=== PATIENT | male | born 1940 | race Caucasian/White ===

== ENCOUNTER 2019-02-14 16:20 | Inpatient (IN) | payer MEDICARE, OTHER ==
[~2019-02-14] VITALS: Ht 182.9 cm; Wt 66.5 kg
--- NOTE | 2019-02-14 16:48 | NUR ---
PT BROUGHT BACK FROM TRIAGE WITH CHIEF COMPLAINT OF JAUNDICE FOR 5 DAYS, DARK URINE, JUNG STOOL. DENIES CP, SOB, N/V.
[2019-02-14] MEDS ORDERED: PRAV10TA2 PO (16:56)
[2019-02-14] MEDS ORDERED: THEO400T2 PO (16:56)
[2019-02-14] MEDS ORDERED: ALBU1.25 NEB (16:56)
[2019-02-14] MEDS ORDERED: MONT4GRA PO (16:56)
[2019-02-14] MEDS ORDERED: TIOT18CA INH (16:56)
[2019-02-14] MEDS ORDERED: AMLO10TA8 PO (16:56)
[2019-02-14 17:35] LABS: MEAN CORPUSCULAR HEMOGLOBIN 33.5 pg (27.5-34.5); MEAN CORPUSCULAR HGB CONC 35.2 g/dL (33.2-36.2); MEAN CORPUSCULAR VOLUME 95.2 fL (81-97); MEAN PLATELET VOLUME 7.3 fL (7.4-10.4); PLATELET COUNT 353 x10^3/uL (130-400); RED BLOOD COUNT 4.11 x10^6/uL (4.38-5.82); RED CELL DISTRIBUTION WIDTH 14.6 % (9.4-14.8)
[2019-02-14 17:43] LABS: INTERNATIONAL NORMALIZED RATIO 0.96 (0.93-1.1); PROTHROMBIN TIME 10.1 Seconds (9.6-11.5)
[2019-02-14 17:44] LABS: MD YES
[2019-02-14 17:46] LABS: ALANINE AMINOTRANSFERASE 194 U/L (12-78); ALBUMIN 2.8 g/dL (3.4-5.0); ANION GAP 7 mmol/L (5-15); CALCIUM 9.3 mg/dL (8.5-10.1); CHLORIDE 104 mmol/L (98-107)
[2019-02-14 17:56] LABS: CREATININE 0.98 mg/dL (0.7-1.3)
[2019-02-14 17:57] LABS: ALKALINE PHOSPHATASE 988 U/L (45-117)
[2019-02-14 18:19] LABS: TOTAL PROTEIN 5.7 g/dL (6.4-8.2)
[2019-02-14 18:25] LABS: BILIRUBIN,TOTAL 23.5 mg/dL (0.2-1.0)
[2019-02-14] MEDS ORDERED: SODIUM CHLORIDE FLUSH 10ML SYR IVF ONE (18:30)
--- NOTE | 2019-02-14 18:30 | NUR ---
MARIA GUADALUPE QUEZADA AT BEDSIDE TO [facility] POC
[2019-02-14 18:33] LABS: BAND#(MANUAL) 0.07 x10^3/uL; BANDS%(MANUAL) 1 % (0-7); BASOS#(MANUAL) 0.07 x10^3/uL (0-0.1); BASOS% (MANUAL) 1 % (0-1); EOS#(MANUAL) 0.15 x10^3/uL (0.0-0.4); EOS% (MANUAL) 2 % (1-7); LYMPH#(MANUAL) 1.11 x10^3/uL (1-3.4); LYMPHS% (MANUAL) 15 % (22-44); MONOS#(MANUAL) 0.59 x10^3/uL (0.3-2.7); MONOS% (MANUAL) 8 % (2-9); SEGS% (MANUAL) 73 % (42-75)
[2019-02-14 18:34] LABS: <PLATELET ESTIMATE> ADEQUATE; <PLT MORPHOLOGY> NORMAL PLT MORPH; <RBC MORPHOLOGY> NORMAL
--- NOTE | 2019-02-14 18:52 | NUR ---
RPT RECEIVED FROM DEBBIE SNIDER. ASSUMED CARE OF PT. NO NEEDS AT THIS TIME.
[2019-02-14] MEDS ORDERED: OMNIPAQUE 350 MG/ML, 100ML BOTTLE ONE (19:26)
[2019-02-14] MEDS ORDERED: DOCUSATE 100 MG CAPSULE PO PRN (21:30)
[2019-02-14] MEDS ORDERED: ALBUTEROL SULFATE 2.5 MG/3 ML NEB PRN (21:30)
[2019-02-14] MEDS ORDERED: morphine SULFATE 10 MG/ML, 1ML IVPush PRN (21:30)
[2019-02-14] MEDS ORDERED: D5%-0.9% NACL 500 ML IV SCH (21:30)
[2019-02-14] MEDS ORDERED: ONDANSETRON ODT 4 MG PO PRN (21:30)
[2019-02-14] MEDS ORDERED: OXYcodone IR 5MG TABLET PO PRN (21:30)
[2019-02-14] MEDS ORDERED: POLYETHYLENE GLYCOL 17 GM PACKET PO PRN (21:30)
[2019-02-14] MEDS ORDERED: BISACODYL 10 MG SUPP PR PRN (21:30)
[2019-02-14] MEDS ORDERED: PROMETHAZINE 25 MG/ML, 1ML IM PRN (21:30)
[2019-02-14] MEDS ORDERED: ONDANSETRON 2MG/ML, 2ML IVPush PRN (21:30)
[2019-02-14] MEDS: NICOTINE 14MG/24 HR PATCH.TD24 TD SCH (21:30)
[2019-02-14] MEDS: IPRATROPIUM 0.5 MG/2.5 ML INHA NPPB SCH (22:00)
[2019-02-14 22:43] VITALS: BP 129/70
[2019-02-14 22:46] LABS: FREE T4 (FREE THYROXINE) 1.34 ng/dL (0.76-1.46)
[2019-02-15] MEDS: D5%-0.9% NACL 1,000 ML IV SCH ×2 (00:20→08:18)
[2019-02-15 02:40] VITALS: BP 110/66
[2019-02-15] MEDS: IPRATROPIUM 0.5 MG/2.5 ML INHA NPPB SCH (04:00)
[2019-02-15 06:13] LABS: MEAN CORPUSCULAR HEMOGLOBIN 33.7 pg (27.5-34.5); MEAN CORPUSCULAR HGB CONC 35.2 g/dL (33.2-36.2); MEAN CORPUSCULAR VOLUME 95.8 fL (81-97); MEAN PLATELET VOLUME 7.2 fL (7.4-10.4); PLATELET COUNT 317 x10^3/uL (130-400); RED BLOOD COUNT 3.68 x10^6/uL (4.38-5.82); RED CELL DISTRIBUTION WIDTH 14.7 % (9.4-14.8)
[2019-02-15 06:24] LABS: ALBUMIN 2.3 g/dL (3.4-5.0); CHLORIDE 109 mmol/L (98-107)
[2019-02-15 06:29] LABS: ALANINE AMINOTRANSFERASE 189 U/L (12-78); ALKALINE PHOSPHATASE 900 U/L (45-117); ANION GAP 7 mmol/L (5-15); CHOL/HDL RATIO 37.6; CHOLESTEROL, TOTAL 188 mg/dL (140-239); HDL CHOL % 3 % (26-37); HDL CHOLESTEROL (DIRECT) 5 mg/dL (40-60)
[2019-02-15 06:31] LABS: CREATININE 0.95 mg/dL (0.7-1.3)
[2019-02-15 06:32] LABS: LDL CHOLESTEROL,CALCULATED 149 mg/dL (54-169); LDL/HDL RATIO 29.8 (0.5-3.0); TOTAL PROTEIN 4.7 g/dL (6.4-8.2); TRIGLYCERIDES 171 mg/dL (50-200); VLDL CHOLESTEROL 34 mg/dL (0-25)
[2019-02-15 06:33] LABS: BILIRUBIN,TOTAL 24.5 mg/dL (0.2-1.0)
[2019-02-15 07:08] VITALS: BP 102/63
[2019-02-15] MEDS: ALBUTEROL/IPRATROPIUM 2.5MG/0.5MG, 3 ML NPPB SCH ×3 (08:10→21:35)
[2019-02-15] MEDS: BUDESONIDE 0.5 MG/2 ML INHA NPPB SCH ×2 (08:10→21:35)
[2019-02-15 08:16] LABS: MD YES
[2019-02-15 08:19] LABS: <PLATELET ESTIMATE> ADEQUATE; <PLT MORPHOLOGY> NORMAL PLT MORPH; <RBC MORPHOLOGY> NORMAL; EOS% (MANUAL) 7 % (1-7); LYMPH#(MANUAL) 1.51 x10^3/uL (1-3.4); LYMPHS% (MANUAL) 21 % (22-44); MONOS#(MANUAL) 0.79 x10^3/uL (0.3-2.7); MONOS% (MANUAL) 11 % (2-9); REACTIVE LYMPHS # (MANUAL) 0.14 x10^3/uL (0-0); REACTIVE LYMPHS % (MANUAL) 2 % (0-0); SEG#(MANUAL) 4.25 x10^3/uL (1.8-6.8); SEGS% (MANUAL) 59 % (42-75)
[2019-02-15] MEDS ORDERED: TEMPLATE NON-FORMULARY MED. (Tiotropium Bromide** (Spiriva**) 18 MCG) INH SCH (09:00)
[2019-02-15] MEDS ORDERED: AMLODIPINE 10 MG TAB PO SCH (09:00)
[2019-02-15] MEDS ORDERED: THEOPHYLLINE 100 MG CAP.ER.24H PO SCH (09:00)
[2019-02-15] MEDS: MONTELUKAST 4 MG TAB.CHEW PO SCH (09:37)
[2019-02-15 13:33] VITALS: BP 146/76
[2019-02-15] MEDS ORDERED: FENTANYL PF 100 MCG/2ML ONE (14:28)
[2019-02-15] MEDS ORDERED: LABETALOL 5MG/ML, 20ML IV PRN (15:00)
[2019-02-15] MEDS ORDERED: ACETAMINOPHEN 325 MG TABLET PO PRN (15:00)
[2019-02-15] MEDS ORDERED: FENTANYL PF 100 MCG/2ML IV PRN (15:00)
[2019-02-15] MEDS ORDERED: OXYcodone 5 MG/5 ML ORAL.SOL UDC PO PRN (15:00)
[2019-02-15] MEDS ORDERED: HYDROmorphone 2 MG/ML, 1ML IVPush PRN (15:00)
[2019-02-15] MEDS ORDERED: ALBUTEROL SULFATE 2.5 MG/3 ML NPPB PRN (15:00)
[2019-02-15] MEDS ORDERED: hydrALAzine 20 MG/ML, 1ML IV PRN (15:00)
[2019-02-15] MEDS ORDERED: INDOMETHACIN 50 MG SUPP.RECT ONE (15:33)
[2019-02-15] MEDS ORDERED: SUCCINYLCHOLINE 20 MG/ML, 10ML ONE (15:36)
[2019-02-15] MEDS ORDERED: ONDANSETRON 2MG/ML, 2ML ONE (15:36)
[2019-02-15] MEDS ORDERED: ROCURONIUM 10MG/ML,5ML ONE (15:36)
[2019-02-15] MEDS ORDERED: DEXAMETHASONE 4 MG/ML, 1ML ONE (15:36)
[2019-02-15] MEDS ORDERED: CEFAZOLIN 1,000 MG ONE (15:36)
[2019-02-15] MEDS ORDERED: SUGAMMADEX 200 MG/2 ML IVPush ONE (15:36)
[2019-02-15] MEDS ORDERED: GLYCOPYRROLATE 0.2MG/1ML, 5ML ONE (15:36)
[2019-02-15] MEDS ORDERED: NEOSTIGMINE 1 MG/ML, 10ML ONE (15:36)
[2019-02-15] MEDS ORDERED: ALBUTEROL HFA 90 MCG/SPRAY ONE (15:36)
[2019-02-15] MEDS ORDERED: PROPOFOL 10 MG/ML, 20ML ONE (15:36)
[2019-02-15] MEDS ORDERED: INDOMETHACIN 50 MG SUPP.RECT PR ONE (16:00)
[2019-02-15] MEDS ORDERED: hydrALAzine 20 MG/ML, 1ML ONE (16:30)
[2019-02-15] MEDS: hydrALAzine 20 MG/ML, 1ML IVPush PRN ×2 (16:33→18:35)
[2019-02-15] MEDS ORDERED: LACTATED RINGERS 1,000 ML IV SCH (17:30)
[2019-02-15 18:36] VITALS: BP 180/91
[2019-02-15] MEDS ORDERED: LACTATED RINGERS 1,600 ML IV SCH (20:00)
[2019-02-15] MEDS ORDERED: PRAVASTATIN 20 MG TABLET PO SCH (21:00)
[2019-02-15] MEDS: NICOTINE 14MG/24 HR PATCH.TD24 TD SCH (21:28)
[2019-02-16] MEDS: D5%-0.9% NACL 1,000 ML IV SCH ×2 (01:01→09:08)
[2019-02-16 01:09] VITALS: BP 128/64
[2019-02-16] MEDS: ALBUTEROL/IPRATROPIUM 2.5MG/0.5MG, 3 ML NPPB SCH ×3 (03:00→14:29)
[2019-02-16 05:18] LABS: ALBUMIN 2.2 g/dL (3.4-5.0); ANION GAP 8 mmol/L (5-15); CALCIUM 7.3 mg/dL (8.5-10.1); CHLORIDE 107 mmol/L (98-107)
[2019-02-16 05:21] LABS: ALANINE AMINOTRANSFERASE 146 U/L (12-78); ALKALINE PHOSPHATASE 789 U/L (45-117); BILIRUBIN,TOTAL 10.8 mg/dL (0.2-1.0); TOTAL PROTEIN 4.8 g/dL (6.4-8.2)
[2019-02-16 05:32] LABS: MEAN CORPUSCULAR HEMOGLOBIN 33.5 pg (27.5-34.5); MEAN CORPUSCULAR HGB CONC 35.4 g/dL (33.2-36.2); MEAN CORPUSCULAR VOLUME 94.6 fL (81-97); MEAN PLATELET VOLUME 7.7 fL (7.4-10.4); PLATELET COUNT 277 x10^3/uL (130-400); RED BLOOD COUNT 3.46 x10^6/uL (4.38-5.82); RED CELL DISTRIBUTION WIDTH 14.9 % (9.4-14.8)
[2019-02-16 06:22] LABS: MD YES
[2019-02-16 06:40] LABS: <PLATELET ESTIMATE> ADEQUATE; <PLT MORPHOLOGY> NORMAL PLT MORPH; <RBC MORPHOLOGY> NORMAL; EOS#(MANUAL) 0.12 x10^3/uL (0.0-0.4); EOS% (MANUAL) 2 % (1-7); LYMPH#(MANUAL) 0.83 x10^3/uL (1-3.4); LYMPHS% (MANUAL) 14 % (22-44); METAMYELOCYTES# (MANUAL) 0.12 x10^3/uL (0-0); METAMYELOCYTES% (MANUAL) 2 % (0-1); MONOS#(MANUAL) 0.47 x10^3/uL (0.3-2.7); MONOS% (MANUAL) 8 % (2-9); SEG#(MANUAL) 4.37 x10^3/uL (1.8-6.8); SEGS% (MANUAL) 74 % (42-75)
[2019-02-16] MEDS: BUDESONIDE 0.5 MG/2 ML INHA NPPB SCH (07:13)
[2019-02-16 07:32] VITALS: BP 101/62
[2019-02-16] MEDS: MONTELUKAST 4 MG TAB.CHEW PO SCH (08:05)
[2019-02-16] MEDS ORDERED: MAGNESIUM SULFATE PMX 4GM/100M 100 ML IV ONE (10:00)
[2019-02-16] MEDS ORDERED: POTASSIUM CHLORIDE 20 MEQ TAB.ER.PRT PO SCH (10:00)
[2019-02-16] MEDS ORDERED: POTASSIUM CHLORIDE 20 MEQ TAB.ER.PRT PO ONE (13:30)
[2019-02-16 13:33] VITALS: BP 104/63
== END 2019-02-16 15:41 | disposition home or self-care (01) | DRG 444 ==
LOC: ED 20:28 → EDIP 21:16 → 4NW 21:30
PROVIDERS: ADMIT Internal Medicine; ATTEND Hospitalist
PROC: BF101ZZ Fluoroscopy of Bile Ducts using Low Osmolar Contrast (ICD-10-PCS; 2019-02-15)
PROC: 0F798DZ Dilation of Common Bile Duct with Intraluminal Device, Via Natural or Artificial Opening Endoscopic (ICD-10-PCS; principal; 2019-02-15 15:00)
DX: K83.1 Obstruction of bile duct (principal); E43 Unspecified severe protein-calorie malnutrition; Z68.1 Body mass index [BMI] 19.9 or less, adult; K86.9 Disease of pancreas, unspecified; E87.6 Hypokalemia; F17.200 Nicotine dependence, unspecified, uncomplicated; E78.5 Hyperlipidemia, unspecified; I10 Essential (primary) hypertension; J44.9 Chronic obstructive pulmonary disease, unspecified; Z82.3 Family history of stroke; Z82.49 Family history of ischemic heart disease and other diseases of the circulatory system; Z85.46 Personal history of malignant neoplasm of prostate; Z92.3 Personal history of irradiation
CPT/HCPCS: 36415; 71045; 74177; 74328; 80053; 80061; 83036; 83690; 83735; 84100; 84439; 84443; 85025; 85610; 85730; 93005; 94640; 99285; G0378; J0690; J1100; J2405; J2704; J2710; J3010; J7620; J7626; Q9967; C1769; C1894; C2625; J0330; J0360; J3475; J7042; J7120

== ENCOUNTER 2019-02-19 06:19 | Day surgery (SDC) | payer MEDICARE ==
[~2019-02-19] VITALS: Ht 182.9 cm; Wt 69.0 kg
[~2019-02-19 06:19] MED LIST: ALBU1.25 NEB; AMLO10TA8 PO; MONT4GRA PO; PRAV10TA2 PO; THEO400T2 PO; TIOT18CA INH
[2019-02-19] MEDS ORDERED: ventolin inh INH (07:02)
[2019-02-19] MEDS ORDERED: FORMETEROL INH (07:02)
[2019-02-19] MEDS ORDERED: LACTATED RINGERS 1,000 ML IV SCH (07:10)
[2019-02-19 07:24] VITALS: BP 127/74
[2019-02-19] MEDS ORDERED: LIDOCAINE-MPF 1%, 2ML INFIL ONE (07:30)
[2019-02-19] MEDS ORDERED: MIDAZOLAM 1 MG/ML, 2ML ONE (07:55)
[2019-02-19] MEDS ORDERED: PROPOFOL 10 MG/ML, 20ML ONE (07:56)
[2019-02-19] MEDS ORDERED: FENTANYL PF 100 MCG/2ML ONE (07:56)
[2019-02-19] MEDS ORDERED: KETAMINE 10 MG/ML, 20ML ONE (08:02)
[2019-02-19] MEDS ORDERED: PHENYLEPHRINE 10 MG/ML ONE (08:11)
[2019-02-19 08:15] LABS: ANION GAP 10 mmol/L (5-15); CALCIUM 8.6 mg/dL (8.5-10.1); CHLORIDE 109 mmol/L (98-107); CREATININE 0.78 mg/dL (0.7-1.3)
[2019-02-19] MEDS ORDERED: HYDROmorphone 2 MG/ML, 1ML IVPush PRN (09:00)
[2019-02-19] MEDS ORDERED: OXYcodone 5 MG/5 ML ORAL.SOL UDC PO PRN (09:00)
[2019-02-19] MEDS ORDERED: MEPERIDINE/PF 25MG/ML,1ML IVPush PRN (09:00)
[2019-02-19] MEDS ORDERED: ALBUTEROL/IPRATROPIUM 2.5MG/0.5MG, 3 ML NPPB PRN (09:00)
[2019-02-19] MEDS ORDERED: ONDANSETRON 2MG/ML, 2ML IV PRN (09:00)
[2019-02-19] MEDS ORDERED: FENTANYL PF 100 MCG/2ML IV PRN (09:00)
[2019-02-19] MEDS ORDERED: hydrALAzine 20 MG/ML, 1ML IV PRN (09:00)
[2019-02-19] MEDS ORDERED: hydrALAzine 20 MG/ML, 1ML ONE (09:14)
== END 2019-02-19 11:10 | disposition home or self-care (01) ==
LOC: OUT 06:19
PROVIDERS: ATTEND Internal Medicine
DX: K86.89 Other specified diseases of pancreas (principal); C25.0 Malignant neoplasm of head of pancreas; K83.1 Obstruction of bile duct; I70.0 Atherosclerosis of aorta; F10.20 Alcohol dependence, uncomplicated; I10 Essential (primary) hypertension; J44.9 Chronic obstructive pulmonary disease, unspecified; F17.210 Nicotine dependence, cigarettes, uncomplicated; Z79.899 Other long term (current) drug therapy; Z80.8 Family history of malignant neoplasm of other organs or systems; Z80.3 Family history of malignant neoplasm of breast; Z82.3 Family history of stroke; Z82.49 Family history of ischemic heart disease and other diseases of the circulatory system
CPT/HCPCS: 36415; 43242; 80048; 88172; 88173; 88307; J0360; J2250; J2370; J2704; J3010; J7120; 88341; 88342

== ENCOUNTER → 2019-04-10 | Outpatient (CLI) | payer MEDICARE ==
[~2019-04-10] MED LIST changes: +FORMETEROL INH; +ventolin inh INH
== END | disposition home or self-care (01) ==
LOC: PETCFH 09:37
PROVIDERS: ATTEND Surgery
DX: C25.0 Malignant neoplasm of head of pancreas (principal); C49.9 Malignant neoplasm of connective and soft tissue, unspecified; I65.23 Occlusion and stenosis of bilateral carotid arteries; R91.1 Solitary pulmonary nodule; J43.9 Emphysema, unspecified
CPT/HCPCS: 78815; A9552

== ENCOUNTER 2019-04-18 13:02 | Outpatient (CLI) | payer MEDICARE ==
[2019-04-18] MEDS ORDERED: OMNIPAQUE 350 MG/ML, 100ML BOTTLE ONE (14:50)
== END 2019-04-18 23:59 | disposition home or self-care (01) ==
LOC: CFH 13:02
PROVIDERS: ATTEND Surgery
DX: C25.0 Malignant neoplasm of head of pancreas (principal); C49.9 Malignant neoplasm of connective and soft tissue, unspecified
CPT/HCPCS: 74170; 82565; Q9967

== ENCOUNTER 2019-04-28 14:22 | Inpatient (IN) | payer MEDICARE ==
[~2019-04-28] VITALS: Ht 182.9 cm; Wt 64.8 kg
[2019-04-28] MEDS ORDERED: SODIUM CHLORIDE 0.9% 1,000 ML IV ONE (14:46)
[2019-04-28] MEDS ORDERED: SODIUM CHLORIDE FLUSH 10ML SYR IVF ONE (15:00)
[2019-04-28 15:11] LABS: BASOPHILS # (AUTO) 0.04 x10^3/uL (0-0.1); BASOPHILS % (AUTO) 1 % (0-1); EOSINOPHILS # (AUTO) 0.14 x10^3/uL (0-0.4); EOSINOPHILS % (AUTO) 3 % (1-7); LYMPHOCYTES # (AUTO) 1.13 x10^3/uL (1-3.4); LYMPHOCYTES % (AUTO) 23 % (22-44); MD NO; MEAN CORPUSCULAR HEMOGLOBIN 32.9 pg (27.5-34.5); MEAN CORPUSCULAR VOLUME 96.7 fL (81-97); MEAN PLATELET VOLUME 7.7 fL (7.4-10.4); MONOCYTES # (AUTO) 0.38 x10^3/uL (0.2-0.8); MONOCYTES % (AUTO) 8 % (2-9); NEUTROPHILS % (AUTO) 66 % (42-75); PLATELET COUNT 227 x10^3/uL (130-400); RED CELL DISTRIBUTION WIDTH 14.2 % (9.4-14.8)
[2019-04-28 15:15] LABS: ALANINE AMINOTRANSFERASE 179 U/L (12-78); ALBUMIN 3.1 g/dL (3.4-5.0); ANION GAP 7 mmol/L (5-15); CALCIUM 9.5 mg/dL (8.5-10.1); CHLORIDE 106 mmol/L (98-107); CREATININE 0.79 mg/dL (0.7-1.3)
--- NOTE | 2019-04-28 15:16 | NUR ---
IV ESTABLISHED AND IVF STARTED
[2019-04-28 15:17] LABS: ALKALINE PHOSPHATASE 703 U/L (45-117); BILIRUBIN,TOTAL 3.9 mg/dL (0.2-1.0); TOTAL PROTEIN 6.6 g/dL (6.4-8.2)
[2019-04-28 16:32] LABS: CULTURE INDICATED? YES; MICROSCOPIC AUTO
--- NOTE | 2019-04-28 16:40 | NUR ---
DR GERONIMO SPOKE WITH DR HUYNH
--- NOTE | 2019-04-28 16:50 | NUR ---
PT RESTING IN [facility] WITH IVF INFUSING, CALL LIGHT WITHIN REACH.
[2019-04-28] MEDS ORDERED: SODIUM CHLORIDE FLUSH 10ML SYR IVF PRN (17:30)
[2019-04-28] MEDS ORDERED: ASPI-515 PO (17:41)
--- NOTE | 2019-04-28 18:49 | NUR ---
REPORT TO MERCY LEWIS
[2019-04-28] MEDS ORDERED: LORazepam 2 MG/ML, 1ML IVPush PRN (19:00)
[2019-04-28] MEDS ORDERED: ONDANSETRON 2MG/ML, 2ML IVPush PRN (19:00)
[2019-04-28] MEDS ORDERED: BISACODYL 10 MG SUPP PR PRN (19:00)
[2019-04-28] MEDS ORDERED: hydrALAzine 20 MG/ML, 1ML IVPush PRN (19:00)
[2019-04-28] MEDS ORDERED: morphine SULFATE 10 MG/ML, 1ML IVPush PRN (19:00)
[2019-04-28] MEDS ORDERED: LIDODERM 5% PATCH TD PRN (19:00)
[2019-04-28 19:30] VITALS: BP 185/90
[2019-04-28 19:48] VITALS: BP 185/90
[2019-04-28 20:30] VITALS: BP 136/72
[2019-04-28] MEDS: NICOTINE 21 MG/24 HR PATCH.TD24 TD SCH (21:38)
[2019-04-28] MEDS ORDERED: ALBUTEROL/IPRATROPIUM 2.5MG/0.5MG, 3 ML ONE (22:01)
[2019-04-29 01:54] VITALS: BP 125/74
[2019-04-29 05:35] LABS: ALBUMIN 2.7 g/dL (3.4-5.0); ANION GAP 5 mmol/L (5-15); CALCIUM 8.6 mg/dL (8.5-10.1); CHLORIDE 107 mmol/L (98-107)
[2019-04-29 05:39] LABS: ALANINE AMINOTRANSFERASE 147 U/L (12-78); ALKALINE PHOSPHATASE 641 U/L (45-117); BILIRUBIN,TOTAL 3.7 mg/dL (0.2-1.0); CREATININE 0.77 mg/dL (0.7-1.3); TOTAL PROTEIN 5.7 g/dL (6.4-8.2)
[2019-04-29] MEDS: ALBUTEROL/IPRATROPIUM 2.5MG/0.5MG, 3 ML NPPB SCH ×4 (07:00→20:35)
[2019-04-29 07:35] VITALS: BP 132/68
[2019-04-29] MEDS: LIDODERM REMOVE PATCH NOTE XX SCH (07:48)
[2019-04-29] MEDS ORDERED: FENTANYL PF 100 MCG/2ML ONE (10:42)
[2019-04-29] MEDS ORDERED: SUGAMMADEX 200 MG/2 ML IVPush ONE (11:25)
[2019-04-29] MEDS ORDERED: ROCURONIUM 10MG/ML,5ML ONE (11:25)
[2019-04-29] MEDS ORDERED: PROPOFOL 10 MG/ML, 20ML ONE (11:25)
[2019-04-29] MEDS ORDERED: OMNIPAQUE 350 MG/ML, 50 ML BOTTLE ONE (13:00)
[2019-04-29 13:19] VITALS: BP 154/69
[2019-04-29] MEDS ORDERED: AMLODIPINE 5 MG TABLET PO ONE (15:30)
[2019-04-29 19:14] VITALS: BP 146/93
[2019-04-29] MEDS: NICOTINE 21 MG/24 HR PATCH.TD24 TD SCH (20:33)
[2019-04-30 01:53] VITALS: BP 98/64
[2019-04-30 06:33] LABS: BASOPHILS # (AUTO) 0.03 x10^3/uL (0-0.1); BASOPHILS % (AUTO) 1 % (0-1); EOSINOPHILS # (AUTO) 0.19 x10^3/uL (0-0.4); EOSINOPHILS % (AUTO) 3 % (1-7); LYMPHOCYTES # (AUTO) 1.31 x10^3/uL (1-3.4); LYMPHOCYTES % (AUTO) 24 % (22-44); MD NO; MEAN CORPUSCULAR HEMOGLOBIN 32.7 pg (27.5-34.5); MEAN CORPUSCULAR HGB CONC 34.1 g/dL (33.2-36.2); MEAN CORPUSCULAR VOLUME 95.9 fL (81-97); MEAN PLATELET VOLUME 7.9 fL (7.4-10.4); MONOCYTES % (AUTO) 13 % (2-9); NEUTROPHILS # (AUTO) 3.31 x10^3/uL (1.8-6.8); NEUTROPHILS % (AUTO) 60 % (42-75); PLATELET COUNT 190 x10^3/uL (130-400); RED BLOOD COUNT 3.93 x10^6/uL (4.38-5.82); RED CELL DISTRIBUTION WIDTH 13.7 % (9.4-14.8)
[2019-04-30 06:44] LABS: ALANINE AMINOTRANSFERASE 147 U/L (12-78); ALBUMIN 2.7 g/dL (3.4-5.0); ANION GAP 6 mmol/L (5-15); CALCIUM 8.9 mg/dL (8.5-10.1); CHLORIDE 104 mmol/L (98-107); CREATININE 0.68 mg/dL (0.7-1.3)
[2019-04-30 06:46] LABS: ALKALINE PHOSPHATASE 571 U/L (45-117); BILIRUBIN,TOTAL 2.8 mg/dL (0.2-1.0); TOTAL PROTEIN 5.6 g/dL (6.4-8.2)
[2019-04-30] MEDS: ALBUTEROL/IPRATROPIUM 2.5MG/0.5MG, 3 ML NPPB SCH ×2 (07:00→10:40)
[2019-04-30 07:07] VITALS: BP 103/78
[2019-04-30] MEDS: LIDODERM REMOVE PATCH NOTE XX SCH (08:01)
[2019-04-30 08:08] VITALS: BP 100/62
[2019-04-30] MEDS ORDERED: AMLODIPINE 5 MG TABLET PO SCH (09:00)
[2019-04-30] MEDS ORDERED: POTASSIUM CHLORIDE 20 MEQ TAB.ER.PRT PO ONE (11:30)
== END 2019-04-30 13:23 | disposition home or self-care (01) | DRG 445 ==
LOC: ED 15:05 → EDIP 17:20 → 4NW 19:14
PROVIDERS: ADMIT Hospitalist; ATTEND Hospitalist
PROC: 0F798DZ Dilation of Common Bile Duct with Intraluminal Device, Via Natural or Artificial Opening Endoscopic (ICD-10-PCS; 2019-04-29)
PROC: 0FPB8DZ Removal of Intraluminal Device from Hepatobiliary Duct, Via Natural or Artificial Opening Endoscopic (ICD-10-PCS; principal; 2019-04-29 11:00)
DX: K83.1 Obstruction of bile duct (principal); C25.9 Malignant neoplasm of pancreas, unspecified; E78.5 Hyperlipidemia, unspecified; F17.200 Nicotine dependence, unspecified, uncomplicated; G89.29 Other chronic pain; I10 Essential (primary) hypertension; J44.9 Chronic obstructive pulmonary disease, unspecified; Z80.3 Family history of malignant neoplasm of breast; Z82.49 Family history of ischemic heart disease and other diseases of the circulatory system; Z85.46 Personal history of malignant neoplasm of prostate
CPT/HCPCS: 36415; 74328; 76700; 80053; 81001; 83690; 85025; 87077; 87086; 93005; 94640; G0378; J2704; J3010; Q9967; C1769; C2625; J7030

== ENCOUNTER → 2019-05-03 | Outpatient (CLI) | payer MEDICARE ==
[~2019-05-03] MED LIST changes: +ASPI-515 PO
== END | disposition home or self-care (01) ==
LOC: ROC 07:49
PROVIDERS: ATTEND Radiology Radiation Oncology
DX: Z08 Encounter for follow-up examination after completed treatment for malignant neoplasm (principal); C25.9 Malignant neoplasm of pancreas, unspecified; J44.9 Chronic obstructive pulmonary disease, unspecified; E78.5 Hyperlipidemia, unspecified; Z87.891 Personal history of nicotine dependence
CPT/HCPCS: 99214; G0463

== ENCOUNTER 2019-05-08 11:32 | Day surgery (SDC) | payer MEDICARE ==
[~2019-05-08] VITALS: Ht 182.9 cm; Wt 64.9 kg
[2019-05-08] MEDS ORDERED: LACTATED RINGERS 1,000 ML IV SCH (12:19)
[2019-05-08 12:20] VITALS: BP 110/67
[2019-05-08] MEDS ORDERED: FENTANYL PF 100 MCG/2ML ONE ×2 (12:56→14:12)
[2019-05-08] MEDS ORDERED: LIDOCAINE-MPF 2% ,5ML ONE (12:58)
[2019-05-08] MEDS ORDERED: EPHEDRINE 50 MG/ML, 1ML IVPush PRN (13:30)
[2019-05-08] MEDS ORDERED: LABETALOL 5MG/ML, 20ML IV PRN (13:30)
[2019-05-08] MEDS ORDERED: OXYcodone 5 MG/5 ML ORAL.SOL UDC PO PRN (13:30)
[2019-05-08] MEDS ORDERED: PROMETHAZINE 25 MG/ML, 1ML IV PRN (13:30)
[2019-05-08] MEDS ORDERED: MEPERIDINE/PF 25MG/ML,1ML IVPush PRN (13:30)
[2019-05-08] MEDS ORDERED: HYDROmorphone 2 MG/ML, 1ML IVPush PRN (13:30)
[2019-05-08] MEDS ORDERED: hydrALAzine 20 MG/ML, 1ML IV PRN (13:30)
[2019-05-08] MEDS ORDERED: ONDANSETRON 2MG/ML, 2ML IV PRN (13:30)
[2019-05-08] MEDS ORDERED: FENTANYL PF 100 MCG/2ML IV PRN (13:30)
[2019-05-08] MEDS ORDERED: PROPOFOL 10 MG/ML, 20ML ONE (14:00)
[2019-05-08] MEDS ORDERED: ONDANSETRON 2MG/ML, 2ML ONE (14:00)
[2019-05-08] MEDS ORDERED: SUCCINYLCHOLINE 20 MG/ML, 10ML ONE (14:00)
[2019-05-08] MEDS ORDERED: DEXAMETHASONE 4 MG/ML, 1ML ONE (14:00)
[2019-05-08] MEDS ORDERED: KETOROLAC 30 MG/1 ML ONE ×2 (14:00)
[2019-05-08] MEDS ORDERED: EPHEDRINE 50 MG/ML, 1ML ONE (14:22)
[2019-05-08] MEDS ORDERED: OMNIPAQUE 350 MG/ML, 50 ML BOTTLE ONE (14:38)
[2019-05-08] MEDS ORDERED: CEFTRIAXONE PMX 1GM/50ML 50 ML IV ONE (15:00)
[2019-05-08] MEDS ORDERED: OMNIPAQUE 350 MG/ML, 100ML BOTTLE ONE (15:30)
== END 2019-05-08 17:00 | disposition home or self-care (01) ==
LOC: OR 11:32
PROVIDERS: ATTEND Internal Medicine Geriatric Medicine
DX: Z46.59 Encounter for fitting and adjustment of other gastrointestinal appliance and device (principal); K83.1 Obstruction of bile duct; C25.9 Malignant neoplasm of pancreas, unspecified; R17 Unspecified jaundice; J44.9 Chronic obstructive pulmonary disease, unspecified; E78.5 Hyperlipidemia, unspecified; Z79.82 Long term (current) use of aspirin; Z79.899 Other long term (current) drug therapy
CPT/HCPCS: 43276; 71260; 74160; 74328; C1769; C1894; C2625; J0330; J0696; J1100; J1885; J2405; J2704; J3010; J7120; Q9967

== ENCOUNTER 2019-05-31 09:30 | Outpatient (CLI) | payer MEDICARE ==
[2019-05-31] MEDS ORDERED: AMLO2.5T5 PO (10:20)
[2019-05-31] MEDS ORDERED: MONT10TA6 PO (10:20)
[2019-05-31] MEDS ORDERED: ALBU18HF INH (10:20)
[2019-05-31] MEDS ORDERED: FLUT12AE11 INH (10:20)
[2019-05-31] MEDS ORDERED: ALBU1.25 NEB (10:20)
[2019-05-31] MEDS ORDERED: PRAV40TA2 PO (10:20)
== END 2019-05-31 23:59 | disposition home or self-care (01) ==
LOC: STAR 09:30
PROVIDERS: ATTEND Internal Medicine Geriatric Medicine
DX: Z01.818 Encounter for other preprocedural examination (principal); Z11.59 Encounter for screening for other viral diseases; K83.1 Obstruction of bile duct
CPT/HCPCS: U0001

== ENCOUNTER 2019-06-04 07:53 | Day surgery (SDC) | payer MEDICARE ==
[2019-05-31 12:25] VITALS: BP 103/67
[~2019-06-04] VITALS: Ht 182.9 cm; Wt 64.1 kg
[~2019-06-04 07:53] MED LIST changes: +ALBU18HF INH; +AMLO2.5T5 PO; +FLUT12AE11 INH; +MONT10TA6 PO; +PRAV40TA2 PO
[2019-06-04] MEDS ORDERED: LACTATED RINGERS 1,000 ML IV SCH (08:15)
[2019-06-04 08:17] VITALS: BP 103/67
[2019-06-04] MEDS ORDERED: CHLORHEXIDINE 15 ML UDC ONE (08:20)
[2019-06-04] MEDS ORDERED: CHLORHEXIDINE 15 ML UDC MM ONE (08:30)
[2019-06-04] MEDS ORDERED: ONDANSETRON 2MG/ML, 2ML ONE (10:02)
[2019-06-04] MEDS ORDERED: PROPOFOL 10 MG/ML, 20ML ONE (10:02)
[2019-06-04] MEDS ORDERED: SUCCINYLCHOLINE 20 MG/ML, 10ML ONE (10:02)
[2019-06-04] MEDS ORDERED: KETOROLAC 30 MG/1 ML IV PRN (10:30)
[2019-06-04] MEDS ORDERED: FENTANYL PF 100 MCG/2ML IV PRN (10:30)
[2019-06-04] MEDS ORDERED: MEPERIDINE/PF 25MG/0.5ML IVPush PRN (10:30)
[2019-06-04] MEDS ORDERED: ALBUTEROL SULFATE 2.5 MG/3 ML NPPB PRN (10:30)
[2019-06-04] MEDS ORDERED: hydrALAzine 20 MG/ML, 1ML IV PRN (10:30)
[2019-06-04] MEDS ORDERED: LABETALOL 5MG/ML, 20ML IV PRN (10:30)
[2019-06-04] MEDS ORDERED: PROMETHAZINE 25 MG/ML, 1ML IV PRN (10:30)
[2019-06-04] MEDS ORDERED: ACETAMINOPHEN 325 MG TABLET PO PRN (10:30)
[2019-06-04] MEDS ORDERED: DIAZEPAM 5 MG/ML, 2ML IVPush PRN (10:30)
[2019-06-04] MEDS ORDERED: HYDROmorphone 2 MG/ML, 1ML IVPush PRN (10:30)
[2019-06-04] MEDS ORDERED: OXYcodone 5 MG/5 ML ORAL.SOL UDC PO PRN (10:30)
[2019-06-04] MEDS ORDERED: OMNIPAQUE 350 MG/ML, 50 ML BOTTLE ONE (10:47)
== END 2019-06-04 13:30 | disposition home or self-care (01) ==
LOC: OUT 07:53
PROVIDERS: ATTEND Internal Medicine Geriatric Medicine
DX: Z46.59 Encounter for fitting and adjustment of other gastrointestinal appliance and device (principal); K83.1 Obstruction of bile duct; C25.0 Malignant neoplasm of head of pancreas; J44.9 Chronic obstructive pulmonary disease, unspecified; Z79.82 Long term (current) use of aspirin; Z79.899 Other long term (current) drug therapy
CPT/HCPCS: 43276; 74328; C1769; C1876; J0330; J2405; J2704; J7120; Q9967

== ENCOUNTER 2019-09-02 12:56 | Outpatient (CLI) | payer MEDICARE ==
[2019-09-02] MEDS ORDERED: OMNIPAQUE 350 MG/ML, 100ML BOTTLE ONE (14:50)
== END 2019-09-02 23:59 | disposition home or self-care (01) ==
LOC: CFH 12:56
PROVIDERS: ATTEND Internal Medicine Hematology & Oncology
DX: C49.4 Malignant neoplasm of connective and soft tissue of abdomen (principal); R91.1 Solitary pulmonary nodule
CPT/HCPCS: 71260; 74177; Q9967

== ENCOUNTER 2019-09-25 08:25 | Observation (INO) | payer MEDICARE ==
[~2019-09-25] VITALS: Ht 182.9 cm; Wt 61.6 kg
--- NOTE | 2019-09-25 08:42 | NUR ---
PATIENT WALKED BACK FROM TRIAGE WITH CHIEF COMPLAINT OF ABDOMINAL DISCOMFORT. PER PATIENT HE HAS A PANCREATIC STENT AND FEELS LIKE HIS STENT IS "PLUGGED UP AGAIN." PATIENT REPORTS DARK URINE, AND SAYS HE HAS BEEN IN FOR THE SAME ISSUES 5X SINCE FEBRUARY. PATIENT A&OX4, VITAL SIGNS WITHIN NORMAL LIMITS.
[2019-09-25] MEDS ORDERED: SODIUM CHLORIDE 0.9% 1,000 ML IV ONE (09:27)
[2019-09-25] MEDS ORDERED: SODIUM CHLORIDE FLUSH 10ML SYR IVF ONE (09:30)
[2019-09-25 09:54] LABS: BASOPHILS # (AUTO) 0.04 x10^3/uL (0-0.1); BASOPHILS % (AUTO) 1 % (0-1); EOSINOPHILS # (AUTO) 0.22 x10^3/uL (0-0.4); EOSINOPHILS % (AUTO) 4 % (1-7); LYMPHOCYTES # (AUTO) 0.73 x10^3/uL (1-3.4); LYMPHOCYTES % (AUTO) 12 % (22-44); MD NO; MEAN CORPUSCULAR HEMOGLOBIN 32.3 pg (27.5-34.5); MEAN CORPUSCULAR HGB CONC 34.6 g/dL (33.2-36.2); MEAN CORPUSCULAR VOLUME 93.4 fL (81-97); MEAN PLATELET VOLUME 7.2 fL (7.4-10.4); MONOCYTES # (AUTO) 0.55 x10^3/uL (0.2-0.8); MONOCYTES % (AUTO) 9 % (2-9); NEUTROPHILS # (AUTO) 4.38 x10^3/uL (1.8-6.8); NEUTROPHILS % (AUTO) 74 % (42-75); PLATELET COUNT 174 x10^3/uL (130-400); RED BLOOD COUNT 3.89 x10^6/uL (4.38-5.82); RED CELL DISTRIBUTION WIDTH 15.9 % (9.4-14.8)
[2019-09-25 10:04] LABS: ALANINE AMINOTRANSFERASE 122 U/L (12-78); ALBUMIN 2.9 g/dL (3.4-5.0); ANION GAP 6 mmol/L (5-15); CALCIUM 9.5 mg/dL (8.5-10.1); CHLORIDE 104 mmol/L (98-107); CREATININE 0.78 mg/dL (0.7-1.3)
[2019-09-25 10:07] LABS: INTERNATIONAL NORMALIZED RATIO 1.01 (0.93-1.1); PROTHROMBIN TIME 10.4 Seconds (9.6-11.5)
[2019-09-25 10:18] LABS: ALKALINE PHOSPHATASE 987 U/L (45-117); BILIRUBIN,TOTAL 6.6 mg/dL (0.2-1.0); TOTAL PROTEIN 6.8 g/dL (6.4-8.2)
--- NOTE | 2019-09-25 10:24 | NUR ---
20 guage IV started right upper arm, NS hung at 250 mLs/hr, patient resting in [facility], call light within reach, bed rails up x2, no further needs at this time.
--- NOTE | 2019-09-25 11:13 | NUR ---
U/S tech at bedside.
--- NOTE | 2019-09-25 11:36 | NUR ---
PATIENT SITTING IN BED DOING CROSSWORDS, CALL LIGHT WITHIN REACH, NO FURTHER NEEDS AT THIS TIME.
--- NOTE | 2019-09-25 12:20 | NUR ---
PATIENT AMBULATED TO BATHROOM WITH STEADY GAIT.
--- NOTE | 2019-09-25 13:26 | NUR ---
BREAK RN: PT SITTING UP IN BED WATCHING TV. NAD NOTED, VSS. PT INFORMED OF NEED TO PROVIDE URINE SAMPLE. CALL LIGHT W/I REACH. VSS
[2019-09-25] MEDS ORDERED: ONDANSETRON 2MG/ML, 2ML IVPush PRN (13:30)
[2019-09-25] MEDS ORDERED: ONDANSETRON ODT 4 MG PO PRN (13:30)
[2019-09-25] MEDS ORDERED: ACETAMINOPHEN 325 MG TABLET PO PRN (13:30)
[2019-09-25] MEDS ORDERED: MELATONIN 5 MG TABLET PO PRN (13:30)
[2019-09-25] MEDS ORDERED: ALBUTEROL HFA 90 MCG/SPRAY INH PRN (13:30)
[2019-09-25] MEDS ORDERED: OXYcodone IR 5MG TABLET PO PRN (13:30)
[2019-09-25] MEDS: LACTATED RINGERS 1,000 ML IV SCH (14:07)
--- NOTE | 2019-09-25 14:08 | NUR ---
LR HUNG AT 100 mLS/HR. PATIENT EDUCATED ABOUT NEED FOR URINE SAMPLE, UNABLE TO GO RIGHT NOW. CALL LIGHT WITHIN REACH, VITAL SIGNS WITHIN NORMAL LIMITS, NO FURTHER NEEDS AT THIS TIME.
[2019-09-25 16:17] LABS: MICROSCOPIC NOT IND
--- NOTE | 2019-09-25 16:42 | NUR ---
HOSPITALIST AT BEDSIDE FOR EVALUATION.
--- NOTE | 2019-09-25 16:55 | NUR ---
REPORT GIVEN TO DEBBIE ORTEZ FOR TRANSFER OF PATIENT CARE.
--- NOTE | 2019-09-25 17:05 | NUR ---
LATE ENTRY: PATIENT TRANSPORTED TO ONCOLOGY IN STABLE CONDITION VIA GURNEY WITH ENGINE SPECIALIST AT BEDSIDE. ALL PATIENT BELONGINGS GATHERED AND TAKEN UP WITH PATIENT.
[2019-09-25 17:25] VITALS: BP 158/84
[2019-09-25 18:26] VITALS: BP 159/76
[2019-09-25 19:56] VITALS: BP 159/76
[2019-09-25] MEDS ORDERED: HYDR5TAB13 PO (19:58)
[2019-09-25] MEDS ORDERED: MONTELUKAST 10 MG TABLET PO SCH (21:00)
[2019-09-25] MEDS ORDERED: FLUTICASONE FUROATE 200MCG/INH INH SCH (21:00)
[2019-09-26] MEDS: LACTATED RINGERS 1,000 ML IV SCH (00:17)
[2019-09-26 02:06] VITALS: BP 166/69
[2019-09-26 02:28] VITALS: BP 147/77
[2019-09-26 04:52] LABS: BASOPHILS # (AUTO) 0.03 x10^3/uL (0-0.1); BASOPHILS % (AUTO) 1 % (0-1); EOSINOPHILS # (AUTO) 0.34 x10^3/uL (0-0.4); EOSINOPHILS % (AUTO) 6 % (1-7); LYMPHOCYTES # (AUTO) 0.64 x10^3/uL (1-3.4); LYMPHOCYTES % (AUTO) 11 % (22-44); MD NO; MEAN CORPUSCULAR HEMOGLOBIN 31.4 pg (27.5-34.5); MEAN CORPUSCULAR HGB CONC 33.5 g/dL (33.2-36.2); MEAN CORPUSCULAR VOLUME 93.8 fL (81-97); MONOCYTES # (AUTO) 0.68 x10^3/uL (0.2-0.8); MONOCYTES % (AUTO) 11 % (2-9); NEUTROPHILS # (AUTO) 4.29 x10^3/uL (1.8-6.8); NEUTROPHILS % (AUTO) 72 % (42-75); PLATELET COUNT 170 x10^3/uL (130-400); RED BLOOD COUNT 3.65 x10^6/uL (4.38-5.82); RED CELL DISTRIBUTION WIDTH 16.3 % (9.4-14.8)
[2019-09-26 04:58] LABS: ALANINE AMINOTRANSFERASE 107 U/L (12-78); ALBUMIN 2.6 g/dL (3.4-5.0); ANION GAP 6 mmol/L (5-15); CALCIUM 8.4 mg/dL (8.5-10.1); CHLORIDE 104 mmol/L (98-107)
[2019-09-26 05:00] LABS: ALKALINE PHOSPHATASE 887 U/L (45-117); BILIRUBIN,TOTAL 7.4 mg/dL (0.2-1.0); TOTAL PROTEIN 6.1 g/dL (6.4-8.2)
[2019-09-26 06:51] VITALS: BP 142/65
[2019-09-26] MEDS ORDERED: CHLORHEXIDINE 15 ML UDC ONE (08:32)
[2019-09-26] MEDS ORDERED: CHLORHEXIDINE 15 ML UDC MM STA (08:59)
[2019-09-26] MEDS ORDERED: NICOTINE 21 MG/24 HR PATCH.TD24 TD SCH (09:00)
[2019-09-26] MEDS ORDERED: TIOTROPIUM BROMIDE 18 MCG/INH INH SCH (09:00)
[2019-09-26] MEDS ORDERED: ONDANSETRON 2MG/ML, 2ML ONE (09:10)
[2019-09-26] MEDS ORDERED: DEXAMETHASONE 4 MG/ML, 1ML ONE (09:10)
[2019-09-26] MEDS ORDERED: PROPOFOL 10 MG/ML, 20ML ONE (09:10)
[2019-09-26] MEDS ORDERED: SUCCINYLCHOLINE 20 MG/ML, 10ML ONE (09:10)
[2019-09-26] MEDS ORDERED: CHLORHEXIDINE 15 ML UDC MM ONE (09:30)
[2019-09-26] MEDS ORDERED: DIAZEPAM 5 MG/ML, 2ML IVPush PRN (09:30)
[2019-09-26] MEDS ORDERED: FENTANYL PF 100 MCG/2ML IV PRN (09:30)
[2019-09-26] MEDS ORDERED: ALBUTEROL SULFATE 2.5 MG/3 ML NPPB PRN (09:30)
[2019-09-26] MEDS ORDERED: hydrALAzine 20 MG/ML, 1ML IV PRN (09:30)
[2019-09-26] MEDS ORDERED: PROMETHAZINE 25 MG/ML, 1ML IV PRN (09:30)
[2019-09-26] MEDS ORDERED: MEPERIDINE/PF 25MG/0.5ML IVPush PRN (09:30)
[2019-09-26] MEDS ORDERED: HYDROmorphone 2 MG/ML, 1ML IVPush PRN (09:30)
[2019-09-26] MEDS ORDERED: ACETAMINOPHEN 325 MG TABLET PO PRN (09:30)
[2019-09-26] MEDS ORDERED: LABETALOL 5MG/ML, 20ML IV PRN (09:30)
[2019-09-26] MEDS ORDERED: KETOROLAC 30 MG/1 ML IV PRN (09:30)
[2019-09-26] MEDS ORDERED: OXYcodone 5 MG/5 ML ORAL.SOL UDC PO PRN (09:30)
[2019-09-26] MEDS ORDERED: OMNIPAQUE 350 MG/ML, 50 ML BOTTLE ONE (10:13)
[2019-09-26 12:58] VITALS: BP 144/67
== END 2019-09-26 14:15 | disposition home or self-care (01) ==
LOC: ED 10:21 → EDIP 12:59 → INTOOBSV 12:59 → SUATTDRO 13:21 → 4NW 17:05
PROVIDERS: ADMIT Hospitalist; ATTEND Hospitalist
DX: T85.590A Other mechanical complication of bile duct prosthesis, initial encounter (principal); Z20.828 Contact with and (suspected) exposure to other viral communicable diseases; K83.1 Obstruction of bile duct; C49.9 Malignant neoplasm of connective and soft tissue, unspecified; J44.9 Chronic obstructive pulmonary disease, unspecified; R63.4 Abnormal weight loss; K76.6 Portal hypertension; N13.30 Unspecified hydronephrosis; R09.89 Other specified symptoms and signs involving the circulatory and respiratory systems; F17.200 Nicotine dependence, unspecified, uncomplicated; Y73.2 Prosthetic and other implants, materials and accessory gastroenterology and urology devices associated with adverse incidents; Z66 Do not resuscitate; Z79.82 Long term (current) use of aspirin; Z79.899 Other long term (current) drug therapy; Z85.46 Personal history of malignant neoplasm of prostate; Z85.07 Personal history of malignant neoplasm of pancreas
CPT/HCPCS: 36415; 47539; 74328; 76700; 80053; 81003; 83690; 85025; 85610; 85730; 87635; 96360; 96361; 99285; C1769; C1874; G0378; J0330; J1100; J2405; J2704; J7030; J7120; Q9967

== ENCOUNTER → 2019-10-21 | Outpatient (CLI) | payer MEDICARE ==
[~2019-10-21] MED LIST changes: +HYDR5TAB13 PO; +OMNIPAQUE 350 MG/ML, 100ML BOTTLE ONE
== END | disposition home or self-care (01) ==
LOC: CFH 12:21
PROVIDERS: ATTEND Internal Medicine Hematology & Oncology
DX: C49.4 Malignant neoplasm of connective and soft tissue of abdomen (principal); R91.8 Other nonspecific abnormal finding of lung field; J98.4 Other disorders of lung; K86.89 Other specified diseases of pancreas
CPT/HCPCS: 71260; 74177; Q9967

== ENCOUNTER → 2020-01-17 | Outpatient (CLI) | payer MEDICARE ==
[~2020-01-17] MED LIST changes: +AMLO-211 PO; -AMLO10TA8 PO
== END | disposition home or self-care (01) ==
LOC: CFH 11:57
PROVIDERS: ATTEND Internal Medicine Hematology & Oncology
DX: C49.4 Malignant neoplasm of connective and soft tissue of abdomen (principal); J98.4 Other disorders of lung; R91.1 Solitary pulmonary nodule; K86.89 Other specified diseases of pancreas; R59.1 Generalized enlarged lymph nodes; M62.89 Other specified disorders of muscle
CPT/HCPCS: 71260; 74177; Q9967